=== PATIENT | female | born 1950 | race Caucasian/White ===

== ENCOUNTER 2019-06-16 07:35 | Emergency (ER) | payer MEDICAID ==
[~2019-06-16] VITALS: Ht 152.4 cm; Wt 113.4 kg
--- NOTE | 2019-06-16 07:53 | NUR ---
BIB [facility] FROM HOME,NAUSEA/VOMITING SINCE 399,C/O DIZZINESS BLOOD SUGAR 230 IN THE FIELD. ON ROOM AIR, BREATHING EVENLY AND UNLABORED. CONNECTED TO THE MONITOR AND PULSE OX. WILL CONTINUE TO MONITOR ACCORDINGLY.
[2019-06-16] MEDS ORDERED: ONDANSETRON HCL/PF 4 MG/2 ML VIAL IVP ONE (08:00)
[2019-06-16] MEDS ORDERED: IV NS 0.9% 1,000 ML BAG IV ONE ×2 (08:00→10:30)
[2019-06-16] MEDS ORDERED: ONDANSETRON HCL/PF 4 MG/2 ML VIAL ONE (08:08)
[2019-06-16] MEDS ORDERED: METOCLOPRAMIDE HCL 10 MG/2 ML VIAL ONE (08:09)
[2019-06-16] MEDS ORDERED: diphenhydrAMINE HCL 50 MG/ML VIAL ONE (08:18)
[2019-06-16 08:30] LABS: BASOPHILS # (AUTO) 0.1 /CMM (0.0-0.2); BASOPHILS % (AUTO) 0.7 % (0.0-2.0); HEMATOCRIT 34 % (33-45); HEMOGLOBIN 10.9 g/dL (11.5-14.8); LYMPHOCYTES # (AUTO) 1.9 /CMM (0.8-4.8); LYMPHOCYTES % (AUTO) 24.6 % (20.0-44.0); MEAN CORPUSCULAR HGB CONC 32 g/dl (31.0-36.0); MEAN CORPUSCULAR VOLUME 81 fL (82-100); MONOCYTES # (AUTO) 0.3 /CMM (0.1-1.30); MONOCYTES % (AUTO) 3.4 % (2.0-12.0); NEUTROPHILS # (AUTO) 4.4 /CMM (1.8-8.9); NEUTROPHILS % (AUTO) 57.3 % (43.0-81.0); PLATELET COUNT (AUTO) 247 /CMM (150-450); WHITE BLOOD COUNT (AUTO) 7.7 K/uL (4.3-11.0)
[2019-06-16] MEDS ORDERED: METOCLOPRAMIDE HCL 10 MG/2 ML VIAL IV ONE (08:30)
[2019-06-16] MEDS ORDERED: diphenhydrAMINE HCL 50 MG/ML VIAL IV ONE (08:30)
[2019-06-16 08:36] LABS: CALCIUM, SERUM 9.2 mg/dL (8.5-10.1); CARBON DIOXIDE 22 mmol/L (21-32); CHLORIDE 99 mmol/L (98-107); CREATININE 1.1 mg/dL (0.6-1.3); GLUCOSE 335 mg/dL (74-106); POTASSIUM 4.1 mmol/L (3.5-5.1); SODIUM SERUM 133 mmol/L (136-145); UREA NITROGEN, BLOOD 19 mg/dL (7-18)
[2019-06-16 08:42] LABS: ALANINE AMINOTRANSFERASE 62 U/L (12-78); ALBUMIN 3.6 g/dL (3.4-5.0); ALKALINE PHOSPHATASE 97 U/L (46-116); ASPARTATE AMINOTRANSFERASE 46 U/L (15-37); BILIRUBIN,DIRECT 0.1 mg/dL (0.0-0.2); BILIRUBIN,TOTAL 0.2 mg/dL (0.2-1.0); LIPASE 222 U/L (73-393)
[2019-06-16] MEDS ORDERED: DIAZEPAM 5 MG TABLET ONE (09:25)
--- NOTE | 2019-06-16 09:28 | NUR ---
PATIENT AWAKE ALERT [place] SPEAKING HER DAUGHTER @ BEDSIDE MADE AWARE PLAN OF CARE NOTED PATIENT ABLE TO AMBULATED TO BATHROOM MINIMAL ASSIST URINE OBTAINED AND SEND TO LAB
[2019-06-16] MEDS ORDERED: DIAZEPAM 10 MG TABLET PO ONE (09:30)
--- NOTE | 2019-06-16 11:52 | NUR ---
Patient discharged to home in stable condition. Written and verbal after care instructions given. Patient verbalizes understanding of instruction.
--- NOTE | 2019-06-16 11:53 | NUR ---
PATIENT AWAKE ALERT MD @ BEDSIDE TALKING TO PATIENT REGARIDNG DC INSTRUCTION NOTED PATIENT ABLE TO AMBULATED NON DIZZY
[2019-06-16 11:54] VITALS: BP 156/89
== END 2019-06-16 11:55 | disposition home or self-care (01) ==
LOC: ER 07:38
DX: R42 Dizziness and giddiness (principal); R11.2 Nausea with vomiting, unspecified; R41.82 Altered mental status, unspecified; I10 Essential (primary) hypertension; E11.9 Type 2 diabetes mellitus without complications; E66.9 Obesity, unspecified; Z68.42 Body mass index [BMI] 45.0-49.9, adult
CPT/HCPCS: 36415; 70450; 80048; 80076; 83690; 84484; 85025; 93005; 96361; 96374; 96375; 99284; A4216; J1200; J2765; J7030 ×2; J2405